=== PATIENT | male | born 1940 | race Native Hawaiian/Other Pacific Islander ===

== ENCOUNTER 2023-04-11 17:03 | Emergency (ER) | payer OTHER ==
[~2023-04-11] VITALS: Ht 182.9 cm; Wt 86.2 kg
[2023-04-11 17:59] LABS: PLATELET COUNT 206 K/uL (142-355)
[2023-04-11 19:10] VITALS: BP 121/64; TEMP 97.2
[2023-04-11] MEDS ORDERED: ATEN25TA21 PO (19:48)
[2023-04-11] MEDS ORDERED: CETI10TA PO (19:48)
[2023-04-11] MEDS ORDERED: VITAMIN D325 MCG PO (19:50)
[2023-04-11] MEDS ORDERED: SM VITAMIN B PO (19:51)
[2023-04-11] MEDS ORDERED: DILTIAZEM HYDR240 MG PO (19:52)
[2023-04-11] MEDS ORDERED: ESZO3TAB PO (19:53)
[2023-04-11] MEDS ORDERED: HYDROXYZINE HYD25 MG PO (19:54)
[2023-04-11] MEDS ORDERED: MEMA5TAB PO (19:55)
[2023-04-11] MEDS ORDERED: COZAAR25 MG PO (19:55)
[2023-04-11] MEDS ORDERED: QUET300T PO (19:56)
[2023-04-11] MEDS ORDERED: SENNA-PLUS1 TAB PO (19:58)
[2023-04-11] MEDS ORDERED: TRAZ100T PO (19:59)
[2023-04-11] MEDS ORDERED: DIVA125C PO (20:00)
[2023-04-11] MEDS ORDERED: DONE5TAB PO (20:01)
[2023-04-11] MEDS ORDERED: CLON0.5T36 PO (20:02)
[2023-04-11] MEDS ORDERED: MIRALAX17 GM/SCOO PO (20:03)
[2023-04-26] MEDS ORDERED: ATEN50TA36 PO (10:55)
[2023-04-26] MEDS ORDERED: CETI10TA PO (10:56)
[2023-04-26] MEDS ORDERED: LOSA50TA PO (10:57)
[2023-04-26] MEDS ORDERED: DILTCAP70 PO (10:57)
[2023-04-26] MEDS ORDERED: Depakote Sprinkles 1 PO (10:57)
[2023-04-26] MEDS ORDERED: MAGNSUS68 PO (10:57)
[2023-04-26] MEDS ORDERED: MEMA5TAB PO (10:58)
[2023-04-26] MEDS ORDERED: MIRALAX 17GM PAK PO (10:58)
[2023-04-26] MEDS ORDERED: QUET100T2 PO ×2 (10:59)
== END 2023-04-11 19:20 | disposition still patient (30) ==
LOC: ED 17:03
PROVIDERS: Family Medicine
DX: R45.6 Violent behavior (principal); Z02.79 Encounter for issue of other medical certificate
CPT/HCPCS: 36415; 80053; 85027; 87635; 93005; 99283; U0003